=== PATIENT | female | born 1960 | race Caucasian/White ===

== ENCOUNTER 2018-11-10 14:56 | Inpatient (IN) | payer MEDICAID ==
[~2018-11-10 14:56] MED LIST: FUROSEMIDE 100 MG INJ IV
[2018-11-10 16:10] LABS: ADD MAN DIFF? NO
[2018-11-10] MEDS: ASPIRIN 81 MG TAB PO (16:10)
[2018-11-10] MEDS: NITROGLYCERIN 2% 1 GM OINT PKT TD (16:10)
[2018-11-10 16:12] LABS: WHITE BLOOD COUNT 6.5 10^3/ul (4.8-10.8)
[2018-11-10 16:12] LABS: BASOPHILS % 0.6 % (0.0-2.0); EOSINOPHILS # 0.2 10^3/ul (0.0-0.5); EOSINOPHILS % 2.5 % (0.0-7.0); HEMATOCRIT 36.5 % (37.0-47.0); LYMPHOCYTES # 1.4 10^3/ul (0.8-2.9); LYMPHOCYTES % 20.9 % (15.0-51.0); MEAN CORPUSCULAR HEMOGLOBIN 29.3 pg (29.0-33.0); MEAN CORPUSCULAR HGB CONC 32.9 g/dl (32.0-37.0); MEAN CORPUSCULAR VOLUME 89.2 fl (82.0-101.0); MEAN PLATELET VOLUME 12.1 fl (7.4-10.4); MONOCYTE # 0.5 10^3/ul (0.3-0.9); MONOCYTES % 7.4 % (0.0-11.0); NEUTROPHIL # 4.4 10^3/ul (1.6-7.5); NEUTROPHILS % 68.3 % (39.0-77.0); PLATELET COUNT 209 10^3/UL (140-415); RED BLOOD COUNT 4.09 10^6/ul (4.20-5.40); RED CELL DISTRIBUTION WIDTH 13.6 % (11.5-14.5)
[2018-11-10 16:30] LABS: INR 1.04; PROTIME 13.7 Sec (11.9-14.9); PT RATIO 1.1
[2018-11-10 16:31] LABS: PARTIAL THROMBOPLASTIN TIME 29.1 Sec (23.0-35.0)
[2018-11-10 16:34] LABS: ALANINE AMINOTRANSFERASE 75 IU/L (13-69); ALBUMIN 3.8 g/dl (3.3-4.9); ALBUMIN/GLOBULIN RATIO 1.22; ALKALINE PHOSPHATASE 223 IU/L (42-121); ANION GAP 9 (5-13); ASPARTATE AMINO TRANSFERASE 35 IU/L (15-46); BILIRUBIN,INDIRECT 0.9 mg/dl (0-1.1); BILIRUBIN,TOTAL 0.9 mg/dl (0.2-1.3); BLOOD UREA NITROGEN 12 mg/dl (7-20); CALCIUM 8.5 mg/dl (8.4-10.2); CARBON DIOXIDE 30 mmol/L (21-31); CHLORIDE 102 mmol/L (97-110); CREATININE 0.55 mg/dl (0.44-1.00); Estimated GFR > 60 mL/min (>60); GLUCOSE 352 mg/dl (70-220); POTASSIUM 3.6 mmol/L (3.5-5.1); SODIUM 141 mmol/L (135-144); TOTAL PROTEIN 6.9 g/dl (6.1-8.1)
[2018-11-10 16:43] LABS: B-TYPE NATRIURETIC PEPTIDE 9470 PG/ML (0-125); TROPONIN-I < 0.012 ng/ml (0.000-0.120)
[2018-11-10] MEDS: FUROSEMIDE 40 MG INJ IV (19:00)
[2018-11-10] MEDS ORDERED: DEXTROSE 50% 50 ML SYRINGE IV ×2 (19:30)
[2018-11-10] MEDS ORDERED: GLUCOSE GEL 15 GRAM TUBE PO ×2 (19:30)
[2018-11-10] MEDS ORDERED: GLUCAGON 1 MG INJ IM (19:30)
[2018-11-10] MEDS ORDERED: ONDANSETRON 4 MG INJ IV (19:30)
[2018-11-10] MEDS ORDERED: NACL 0.9% 3 ML SYG IV (19:30)
[2018-11-10] MEDS ORDERED: GLUCOSE GEL 15 GRAM TUBE BUCCAL (19:30)
[2018-11-10] MEDS: ACETAMINOPHEN 325 MG TAB PO (22:03)
[2018-11-10] MEDS: INSULIN ASPART [NOVOLOG] 3 ML PEN SC (23:37)
[2018-11-11] MEDS: ACCU-CHEK XX (02:00)
[2018-11-11 05:42] LABS: ADD MAN DIFF? NO
[2018-11-11 05:50] LABS: BASOPHIL # 0.1 10^3/ul (0.0-0.1); BASOPHILS % 0.8 % (0.0-2.0); EOSINOPHILS # 0.2 10^3/ul (0.0-0.5); EOSINOPHILS % 3.9 % (0.0-7.0); HEMATOCRIT 33.6 % (37.0-47.0); HEMOGLOBIN 11.2 g/dl (12.0-16.0); LYMPHOCYTES # 1.5 10^3/ul (0.8-2.9); MEAN CORPUSCULAR HGB CONC 33.3 g/dl (32.0-37.0); MEAN CORPUSCULAR VOLUME 90.1 fl (82.0-101.0); MEAN PLATELET VOLUME 12.3 fl (7.4-10.4); MONOCYTE # 0.6 10^3/ul (0.3-0.9); MONOCYTES % 9.4 % (0.0-11.0); NEUTROPHIL # 3.7 10^3/ul (1.6-7.5); NEUTROPHILS % 60.6 % (39.0-77.0); PLATELET COUNT 177 10^3/UL (140-415); RED BLOOD COUNT 3.73 10^6/ul (4.20-5.40); RED CELL DISTRIBUTION WIDTH 13.7 % (11.5-14.5)
[2018-11-11 05:50] LABS: WHITE BLOOD COUNT 6.1 10^3/ul (4.8-10.8)
[2018-11-11 06:11] LABS: ALANINE AMINOTRANSFERASE 65 IU/L (13-69); ALBUMIN 3.2 g/dl (3.3-4.9); ALBUMIN/GLOBULIN RATIO 1.06; ALKALINE PHOSPHATASE 163 IU/L (42-121); ANION GAP 8 (5-13); ASPARTATE AMINO TRANSFERASE 31 IU/L (15-46); BILIRUBIN,INDIRECT 0.8 mg/dl (0-1.1); BILIRUBIN,TOTAL 0.8 mg/dl (0.2-1.3); BLOOD UREA NITROGEN 13 mg/dl (7-20); CALCIUM 8.3 mg/dl (8.4-10.2); CARBON DIOXIDE 32 mmol/L (21-31); CHLORIDE 104 mmol/L (97-110); CHOL/HDL RATIO 3.2 RATIO; CHOLESTEROL 87 mg/dl (100-200); CREATININE 0.61 mg/dl (0.44-1.00); Estimated GFR > 60 mL/min (>60); GLUCOSE 140 mg/dl (70-220); HDL CHOLESTEROL 27 mg/dl (37-92); LDL CHOLESTEROL,CALCULATED 41 mg/dl; MAGNESIUM 1.8 mg/dl (1.7-2.5); PHOSPHORUS 4.9 mg/dl (2.5-4.9); POTASSIUM 3.9 mmol/L (3.5-5.1); SODIUM 144 mmol/L (135-144); TOTAL PROTEIN 6.2 g/dl (6.1-8.1); TRIGLYCERIDES 96 mg/dl (0-149)
[2018-11-11 07:29] LABS: HEMOGLOBIN A1C 10.1 % (0-5.9)
[2018-11-11] MEDS: INSULIN ASPART [NOVOLOG] 3 ML PEN SC ×4 (07:56→20:21)
[2018-11-11] MEDS: ASPIRIN (EC) 81 MG TAB PO (09:12)
[2018-11-11] MEDS: LISINOPRIL 10 MG TAB PO ×2 (09:13→11:27)
[2018-11-11] MEDS: ENOXAPARIN 40 MG/0.4 ML SYG SC (09:17)
[2018-11-11 11:37] LABS: TROPONIN-I < 0.012 ng/ml (0.000-0.120)
[2018-11-11 12:01] LABS: LACTATE DEHYDROGENASE 545 IU/L (313-618)
[2018-11-11] MEDS: LIDOCAINE 1% (MPF) 5 ML VIAL (12:33)
[2018-11-11 14:38] LABS: FLUID LD 161 U/L; FLUID TYPE THORACENTESIS FLUID
[2018-11-11 14:39] LABS: FLUID TOTAL PROTEIN < 2.0 g/dl
[2018-11-11] MEDS: FUROSEMIDE 40 MG INJ IV (17:24)
[2018-11-11] MEDS: ATORVASTATIN 40 MG TAB PO (21:17)
[2018-11-12] MEDS: ACCU-CHEK XX (01:39)
[2018-11-12] MEDS: FUROSEMIDE 40 MG INJ IV (06:32)
[2018-11-12] MEDS: INSULIN ASPART [NOVOLOG] 3 ML PEN SC ×5 (08:01→21:04)
[2018-11-12 08:40] LABS: ADD MAN DIFF? NO
[2018-11-12 08:42] LABS: WHITE BLOOD COUNT 6.2 10^3/ul (4.8-10.8)
[2018-11-12 08:42] LABS: BASOPHIL # 0.1 10^3/ul (0.0-0.1); BASOPHILS % 0.8 % (0.0-2.0); EOSINOPHILS # 0.2 10^3/ul (0.0-0.5); EOSINOPHILS % 3.7 % (0.0-7.0); HEMATOCRIT 37.1 % (37.0-47.0); HEMOGLOBIN 12.2 g/dl (12.0-16.0); LYMPHOCYTES # 1.4 10^3/ul (0.8-2.9); LYMPHOCYTES % 21.8 % (15.0-51.0); MEAN CORPUSCULAR HEMOGLOBIN 29.5 pg (29.0-33.0); MEAN CORPUSCULAR HGB CONC 32.9 g/dl (32.0-37.0); MEAN CORPUSCULAR VOLUME 89.8 fl (82.0-101.0); MEAN PLATELET VOLUME 12.1 fl (7.4-10.4); MONOCYTE # 0.4 10^3/ul (0.3-0.9); MONOCYTES % 6.9 % (0.0-11.0); NEUTROPHIL # 4.1 10^3/ul (1.6-7.5); NEUTROPHILS % 66.6 % (39.0-77.0); PLATELET COUNT 209 10^3/UL (140-415); RED BLOOD COUNT 4.13 10^6/ul (4.20-5.40); RED CELL DISTRIBUTION WIDTH 13.7 % (11.5-14.5)
[2018-11-12] MEDS: LISINOPRIL 20 MG TAB PO (08:59)
[2018-11-12] MEDS: ASPIRIN (EC) 81 MG TAB PO (09:00)
[2018-11-12] MEDS ORDERED: LISINOPRIL 20 MG TAB PO (09:00)
[2018-11-12 09:10] LABS: ANION GAP 7 (5-13); BLOOD UREA NITROGEN 15 mg/dl (7-20); CALCIUM 8.6 mg/dl (8.4-10.2); CARBON DIOXIDE 35 mmol/L (21-31); CHLORIDE 99 mmol/L (97-110); CREATININE 0.64 mg/dl (0.44-1.00); Estimated GFR > 60 mL/min (>60); GLUCOSE 197 mg/dl (70-220); POTASSIUM 3.5 mmol/L (3.5-5.1); SODIUM 141 mmol/L (135-144)
[2018-11-12 09:11] LABS: MAGNESIUM 1.6 mg/dl (1.7-2.5)
[2018-11-12] MEDS: ENOXAPARIN 40 MG/0.4 ML SYG SC (09:56)
[2018-11-12] MEDS: NITROGLYCERIN AEROSOL (4.9 GM) (12:23)
[2018-11-12] MEDS: SOD CHLORIDE 0.9% 100 ML (12:36)
[2018-11-12] MEDS: IOHEXOL 100 ML (12:36)
[2018-11-12] MEDS: MAGNESIUM SULFATE 2 GM/50 ML 50 ML IVPB (13:19)
[2018-11-12] MEDS: POTASSIUM CHLORIDE 20 MEQ POWDER FOR ORAL SOLN PO (15:44)
[2018-11-12] MEDS: FUROSEMIDE 20 MG INJ IV (19:09)
[2018-11-12] MEDS: INSULIN GLARGINE [LANTus] (100 UNITS/ML) SYG SC (19:26)
[2018-11-12] MEDS: ATORVASTATIN 40 MG TAB PO (20:56)
[2018-11-13] MEDS: ACCU-CHEK XX (01:29)
[2018-11-13] MEDS: FUROSEMIDE 20 MG INJ IV (06:21)
[2018-11-13] MEDS: INSULIN ASPART [NOVOLOG] 3 ML PEN SC ×7 (07:48→21:00)
[2018-11-13] MEDS: ENOXAPARIN 40 MG/0.4 ML SYG SC (09:00)
[2018-11-13] MEDS: LISINOPRIL 20 MG TAB PO (09:32)
[2018-11-13] MEDS: ASPIRIN (EC) 81 MG TAB PO (09:32)
[2018-11-13] MEDS ORDERED: HEPARIN 1000 UNITS/ML 10 ML INJ (13:31)
[2018-11-13] MEDS ORDERED: IODIXANOL LOCM 100 ML BTL (13:31)
[2018-11-13] MEDS ORDERED: VERAPAMIL 5 MG INJ (13:31)
[2018-11-13] MEDS ORDERED: FENTAnyl 50 MCG/ML VIAL (13:31)
[2018-11-13] MEDS ORDERED: MIDAZOLAM 1 MG/ML 2 ML INJ (13:31)
[2018-11-13] MEDS ORDERED: LIDOCAINE 1% (MDV) 20 ML INJ (13:31)
[2018-11-13] MEDS ORDERED: SOD CHLORIDE 0.9% 500 ML (13:32)
[2018-11-13] MEDS: FUROSEMIDE 40 MG INJ IV ×2 (17:54→18:38)
[2018-11-13] MEDS: ATORVASTATIN 40 MG TAB PO (21:07)
[2018-11-13] MEDS: INSULIN GLARGINE [LANTus] (100 UNITS/ML) SYG SC (21:18)
[2018-11-14] MEDS: ACCU-CHEK XX (01:37)
[2018-11-14] MEDS: FUROSEMIDE 40 MG INJ IV (05:55)
[2018-11-14 06:21] LABS: ADD MAN DIFF? NO
[2018-11-14 06:30] LABS: BASOPHILS % 0.5 % (0.0-2.0); EOSINOPHILS # 0.2 10^3/ul (0.0-0.5); EOSINOPHILS % 3.1 % (0.0-7.0); HEMATOCRIT 35.9 % (37.0-47.0); HEMOGLOBIN 11.6 g/dl (12.0-16.0); LYMPHOCYTES # 1.1 10^3/ul (0.8-2.9); LYMPHOCYTES % 19.7 % (15.0-51.0); MEAN CORPUSCULAR HEMOGLOBIN 29.4 pg (29.0-33.0); MEAN CORPUSCULAR HGB CONC 32.3 g/dl (32.0-37.0); MEAN CORPUSCULAR VOLUME 91.1 fl (82.0-101.0); MEAN PLATELET VOLUME 12.2 fl (7.4-10.4); MONOCYTE # 0.5 10^3/ul (0.3-0.9); MONOCYTES % 8.7 % (0.0-11.0); NEUTROPHIL # 3.9 10^3/ul (1.6-7.5); NEUTROPHILS % 67.7 % (39.0-77.0); PLATELET COUNT 198 10^3/UL (140-415); RED BLOOD COUNT 3.94 10^6/ul (4.20-5.40); RED CELL DISTRIBUTION WIDTH 13.6 % (11.5-14.5)
[2018-11-14 06:30] LABS: WHITE BLOOD COUNT 5.8 10^3/ul (4.8-10.8)
[2018-11-14 07:02] LABS: ANION GAP 4 (5-13); BLOOD UREA NITROGEN 19 mg/dl (7-20); CALCIUM 8.2 mg/dl (8.4-10.2); CARBON DIOXIDE 35 mmol/L (21-31); CHLORIDE 100 mmol/L (97-110); CREATININE 0.61 mg/dl (0.44-1.00); Estimated GFR > 60 mL/min (>60); GLUCOSE 208 mg/dl (70-220); POTASSIUM 3.6 mmol/L (3.5-5.1); SODIUM 139 mmol/L (135-144)
[2018-11-14] MEDS: POTASSIUM CHLORIDE 20 MEQ POWDER FOR ORAL SOLN PO (09:23)
[2018-11-14] MEDS: AMLODIPINE 5 MG TAB PO (09:23)
[2018-11-14] MEDS: ASPIRIN (EC) 81 MG TAB PO (09:23)
[2018-11-14] MEDS: LISINOPRIL 20 MG TAB PO (09:24)
[2018-11-14] MEDS: ENOXAPARIN 40 MG/0.4 ML SYG SC (09:38)
[2018-11-14] MEDS: INSULIN ASPART [NOVOLOG] 3 ML PEN SC ×7 (09:38→20:38)
[2018-11-14] MEDS: ATORVASTATIN 40 MG TAB PO (20:27)
[2018-11-14] MEDS: INSULIN GLARGINE [LANTus] (100 UNITS/ML) SYG SC (20:38)
[2018-11-15] MEDS: ACCU-CHEK XX (01:36)
[2018-11-15 06:15] LABS: ADD MAN DIFF? NO
[2018-11-15 06:24] LABS: BASOPHILS % 0.5 % (0.0-2.0); EOSINOPHILS # 0.2 10^3/ul (0.0-0.5); EOSINOPHILS % 3.2 % (0.0-7.0); HEMATOCRIT 36.7 % (37.0-47.0); HEMOGLOBIN 11.9 g/dl (12.0-16.0); LYMPHOCYTES # 1.4 10^3/ul (0.8-2.9); LYMPHOCYTES % 20.8 % (15.0-51.0); MEAN CORPUSCULAR HEMOGLOBIN 29.5 pg (29.0-33.0); MEAN CORPUSCULAR HGB CONC 32.4 g/dl (32.0-37.0); MEAN CORPUSCULAR VOLUME 91.1 fl (82.0-101.0); MEAN PLATELET VOLUME 11.7 fl (7.4-10.4); MONOCYTE # 0.6 10^3/ul (0.3-0.9); MONOCYTES % 9.7 % (0.0-11.0); NEUTROPHIL # 4.3 10^3/ul (1.6-7.5); NEUTROPHILS % 65.5 % (39.0-77.0); PLATELET COUNT 204 10^3/UL (140-415); RED BLOOD COUNT 4.03 10^6/ul (4.20-5.40); RED CELL DISTRIBUTION WIDTH 13.5 % (11.5-14.5)
[2018-11-15 06:24] LABS: WHITE BLOOD COUNT 6.5 10^3/ul (4.8-10.8)
[2018-11-15 07:03] LABS: ANION GAP 4 (5-13); BLOOD UREA NITROGEN 17 mg/dl (7-20); CALCIUM 8.3 mg/dl (8.4-10.2); CARBON DIOXIDE 34 mmol/L (21-31); CHLORIDE 101 mmol/L (97-110); CREATININE 0.64 mg/dl (0.44-1.00); Estimated GFR > 60 mL/min (>60); GLUCOSE 124 mg/dl (70-220); POTASSIUM 3.9 mmol/L (3.5-5.1); SODIUM 139 mmol/L (135-144)
[2018-11-15] MEDS: INSULIN ASPART [NOVOLOG] 3 ML PEN SC ×7 (07:48→21:00)
[2018-11-15] MEDS: AMLODIPINE 5 MG TAB PO (08:39)
[2018-11-15] MEDS: FUROSEMIDE 40 MG TAB PO (08:39)
[2018-11-15] MEDS: ASPIRIN (EC) 81 MG TAB PO (08:39)
[2018-11-15] MEDS: ENOXAPARIN 40 MG/0.4 ML SYG SC (08:45)
[2018-11-15] MEDS: LISINOPRIL 20 MG TAB PO (11:57)
[2018-11-15] MEDS: ATORVASTATIN 40 MG TAB PO (21:19)
[2018-11-15] MEDS: INSULIN GLARGINE [LANTus] (100 UNITS/ML) SYG SC (21:24)
[2018-11-16] MEDS: ACCU-CHEK XX (02:00)
[2018-11-16 05:40] LABS: ADD MAN DIFF? NO
[2018-11-16 06:01] LABS: BASOPHILS % 0.6 % (0.0-2.0); EOSINOPHILS # 0.2 10^3/ul (0.0-0.5); EOSINOPHILS % 4.5 % (0.0-7.0); HEMATOCRIT 36.8 % (37.0-47.0); HEMOGLOBIN 11.9 g/dl (12.0-16.0); LYMPHOCYTES # 1.7 10^3/ul (0.8-2.9); LYMPHOCYTES % 33.3 % (15.0-51.0); MEAN CORPUSCULAR HEMOGLOBIN 29.5 pg (29.0-33.0); MEAN CORPUSCULAR HGB CONC 32.3 g/dl (32.0-37.0); MEAN CORPUSCULAR VOLUME 91.3 fl (82.0-101.0); MEAN PLATELET VOLUME 11.8 fl (7.4-10.4); MONOCYTE # 0.5 10^3/ul (0.3-0.9); MONOCYTES % 10.4 % (0.0-11.0); NEUTROPHIL # 2.6 10^3/ul (1.6-7.5); PLATELET COUNT 221 10^3/UL (140-415); RED BLOOD COUNT 4.03 10^6/ul (4.20-5.40); RED CELL DISTRIBUTION WIDTH 13.4 % (11.5-14.5)
[2018-11-16 06:01] LABS: WHITE BLOOD COUNT 5.1 10^3/ul (4.8-10.8)
[2018-11-16 06:14] LABS: ANION GAP 5 (5-13); BLOOD UREA NITROGEN 17 mg/dl (7-20); CALCIUM 8.6 mg/dl (8.4-10.2); CARBON DIOXIDE 33 mmol/L (21-31); CHLORIDE 103 mmol/L (97-110); CREATININE 0.74 mg/dl (0.44-1.00); Estimated GFR > 60 mL/min (>60); GLUCOSE 123 mg/dl (70-220); MAGNESIUM 2.1 mg/dl (1.7-2.5); POTASSIUM 4.4 mmol/L (3.5-5.1); SODIUM 141 mmol/L (135-144)
[2018-11-16] MEDS: CEFAZOLIN 2 GM/50 ML (PMX) 50 ML IVPB (07:00)
[2018-11-16] MEDS: INSULIN ASPART [NOVOLOG] 3 ML PEN SC ×7 (07:48→20:00)
[2018-11-16] MEDS: FUROSEMIDE 40 MG INJ IV (07:53)
[2018-11-16] MEDS: LISINOPRIL 20 MG TAB PO (08:41)
[2018-11-16] MEDS: AMLODIPINE 5 MG TAB PO (08:41)
[2018-11-16] MEDS: ASPIRIN (EC) 81 MG TAB PO (08:41)
[2018-11-16] MEDS: ENOXAPARIN 40 MG/0.4 ML SYG SC (08:48)
[2018-11-16] MEDS: ATORVASTATIN 40 MG TAB PO (20:01)
[2018-11-16] MEDS: INSULIN GLARGINE [LANTus] (100 UNITS/ML) SYG SC (20:02)
[2018-11-17] MEDS: ACCU-CHEK XX ×13 (02:00→23:41)
[2018-11-17 06:30] LABS: ADD MAN DIFF? NO
[2018-11-17 06:38] LABS: WHITE BLOOD COUNT 5.1 10^3/ul (4.8-10.8)
[2018-11-17 06:38] LABS: BASOPHILS % 0.4 % (0.0-2.0); EOSINOPHILS # 0.2 10^3/ul (0.0-0.5); EOSINOPHILS % 3.1 % (0.0-7.0); HEMATOCRIT 38.2 % (37.0-47.0); HEMOGLOBIN 12.3 g/dl (12.0-16.0); LYMPHOCYTES # 1.3 10^3/ul (0.8-2.9); MEAN CORPUSCULAR HEMOGLOBIN 29.4 pg (29.0-33.0); MEAN CORPUSCULAR HGB CONC 32.2 g/dl (32.0-37.0); MEAN CORPUSCULAR VOLUME 91.2 fl (82.0-101.0); MEAN PLATELET VOLUME 11.9 fl (7.4-10.4); MONOCYTE # 0.5 10^3/ul (0.3-0.9); MONOCYTES % 9.1 % (0.0-11.0); NEUTROPHIL # 3.1 10^3/ul (1.6-7.5); PLATELET COUNT 212 10^3/UL (140-415); RED BLOOD COUNT 4.19 10^6/ul (4.20-5.40); RED CELL DISTRIBUTION WIDTH 13.5 % (11.5-14.5)
[2018-11-17] MEDS ORDERED: HEPARIN 1000 UNITS/ML 10 ML INJ ×3 (06:41→09:58)
[2018-11-17] MEDS ORDERED: VANCOMYCIN 1 GM INJ ×2 (06:41→06:45)
[2018-11-17] MEDS ORDERED: PAPAVERINE 60 MG INJ (06:41)
[2018-11-17] MEDS ORDERED: NITROGLYCERIN 50 MG/D5W 250 ML BTL (06:42)
[2018-11-17] MEDS ORDERED: DOPamine-D5W 1.6 MG/ML 250 ML (06:42)
[2018-11-17] MEDS ORDERED: CEFAZOLIN 2 GM/50 ML (PMX) 50 ML IVPB (07:00)
[2018-11-17 07:25] LABS: ANION GAP 6 (5-13); BLOOD UREA NITROGEN 19 mg/dl (7-20); CALCIUM 8.6 mg/dl (8.4-10.2); CARBON DIOXIDE 31 mmol/L (21-31); CHLORIDE 101 mmol/L (97-110); CREATININE 0.65 mg/dl (0.44-1.00); Estimated GFR > 60 mL/min (>60); GLUCOSE 167 mg/dl (70-220); MAGNESIUM 2.1 mg/dl (1.7-2.5); POTASSIUM 4.2 mmol/L (3.5-5.1); SODIUM 138 mmol/L (135-144)
[2018-11-17] MEDS: HEPARIN (10000 UNITS/ML) 10,000 UNIT, MILRINONE LACTATE 10 MG in SOD CHLORIDE 0.9% 1,00... SC (08:00)
[2018-11-17] MEDS: HEPARIN 1000 UNITS/ML 10 ML INJ IRR (08:00)
[2018-11-17] MEDS: ASPIRIN 600 MG SUPP PR (08:00)
[2018-11-17] MEDS: VANCOMYCIN 1 GM INJ IRR (08:00)
[2018-11-17] MEDS: PAPAVERINE 60 MG INJ IRR (08:00)
[2018-11-17] MEDS ORDERED: MIDAZOLAM 1 MG/ML 2 ML INJ (08:16)
[2018-11-17] MEDS ORDERED: POTASSIUM CHLORIDE 40 MEQ INJ (08:46)
[2018-11-17] MEDS ORDERED: MAGNESIUM SULFATE (MG) 50% 10 ML INJ (08:46)
[2018-11-17] MEDS ORDERED: NA BICARBONATE 8.4% 50 ML SYG (08:46)
[2018-11-17] MEDS ORDERED: AMINOCAPROIC ACID 5 GM INJ ×4 (08:46→11:57)
[2018-11-17] MEDS ORDERED: PHENYLephrine 10 MG INJ (08:47)
[2018-11-17] MEDS ORDERED: CA CHLORIDE 10% 10 ML SYRINGE (08:47)
[2018-11-17] MEDS ORDERED: LIDOCAINE 100 MG SYRINGE (08:47)
[2018-11-17] MEDS ORDERED: MANNITOL 20% 500 ML (08:47)
[2018-11-17] MEDS ORDERED: ALBUMIN HUMAN 25% 100 ML (08:47)
[2018-11-17] MEDS ORDERED: CEFAZOLIN 1 GM INJ (08:53)
[2018-11-17] MEDS ORDERED: MIDAZOLAM 5 ML (10:20)
[2018-11-17] MEDS ORDERED: ROCURONIUM 50 MG INJ (11:27)
[2018-11-17] MEDS ORDERED: ETOMIDATE 20 MG INJ (11:27)
[2018-11-17] MEDS ORDERED: LIDOCAINE 2% (SDV) 5 ML INJ (11:27)
[2018-11-17] MEDS ORDERED: PROTAMINE 250 MG INJ (11:27)
[2018-11-17] MEDS ORDERED: FUROSEMIDE 20 MG INJ (11:46)
[2018-11-17] MEDS ORDERED: MAGNESIUM SULFATE 1 GM/D5W 100 ML IVPB (12:30)
[2018-11-17] MEDS ORDERED: DEXTROSE 50% 50 ML SYRINGE IV ×2 (12:30)
[2018-11-17] MEDS ORDERED: HYDROmorphONE 0.5 MG/0.5 ML SYG IV (12:30)
[2018-11-17] MEDS: DOPamine-D5W 1.6 MG/ML 250 ML IV (13:00)
[2018-11-17] MEDS: NITROGLYCERIN 50 MG/D5W (PMX) 250 ML IV (13:00)
[2018-11-17] MEDS ORDERED: hydrALAzine 20 MG INJ IV (13:30)
[2018-11-17] MEDS ORDERED: ALBUMIN HUMAN 5% 250 ML IV (13:30)
[2018-11-17] MEDS ORDERED: LORAZEPAM 2 MG INJ IV (13:30)
[2018-11-17] MEDS ORDERED: DOPamine-D5W 1.6 MG/ML 250 ML IV (13:30)
[2018-11-17] MEDS ORDERED: NITROGLYCERIN 50 MG/D5W (PMX) 250 ML IV (13:30)
[2018-11-17] MEDS ORDERED: MIDAZOLAM 1 MG/ML 2 ML INJ IV (13:30)
[2018-11-17] MEDS ORDERED: EPHEDrine 25 MG/5 ML SYG IV (13:30)
[2018-11-17] MEDS ORDERED: ONDANSETRON 4 MG INJ IV (13:30)
[2018-11-17] MEDS ORDERED: morphine 2 MG INJ IV ×2 (13:30)
[2018-11-17] MEDS ORDERED: DIPHENHYDRAMINE 50 MG INJ IV (13:30)
[2018-11-17] MEDS ORDERED: MEPERIDINE 25 MG INJ IV (13:30)
[2018-11-17 13:41] LABS: ADD MAN DIFF? NO
[2018-11-17 13:45] LABS: BASOPHILS % 0.4 % (0.0-2.0); EOSINOPHILS # 0.2 10^3/ul (0.0-0.5); EOSINOPHILS % 2.2 % (0.0-7.0); HEMATOCRIT 38.4 % (37.0-47.0); HEMOGLOBIN 12.5 g/dl (12.0-16.0); LYMPHOCYTES # 1.7 10^3/ul (0.8-2.9); LYMPHOCYTES % 16.9 % (15.0-51.0); MEAN CORPUSCULAR HGB CONC 32.6 g/dl (32.0-37.0); MEAN CORPUSCULAR VOLUME 92.3 fl (82.0-101.0); MEAN PLATELET VOLUME 11.1 fl (7.4-10.4); MONOCYTE # 0.5 10^3/ul (0.3-0.9); MONOCYTES % 5.1 % (0.0-11.0); NEUTROPHIL # 7.4 10^3/ul (1.6-7.5); NEUTROPHILS % 74.8 % (39.0-77.0); PLATELET COUNT 164 10^3/UL (140-415); RED BLOOD COUNT 4.16 10^6/ul (4.20-5.40); RED CELL DISTRIBUTION WIDTH 13.3 % (11.5-14.5)
[2018-11-17 13:45] LABS: WHITE BLOOD COUNT 9.9 10^3/ul (4.8-10.8)
[2018-11-17 14:04] LABS: INR 1.28; PROTIME 16.1 Sec (11.9-14.9); PT RATIO 1.3
[2018-11-17 14:05] LABS: PARTIAL THROMBOPLASTIN TIME 31.7 Sec (23.0-35.0)
[2018-11-17 14:09] LABS: ANION GAP 8 (5-13); BLOOD UREA NITROGEN 14 mg/dl (7-20); CARBON DIOXIDE 23 mmol/L (21-31); CHLORIDE 111 mmol/L (97-110); CREATININE 0.59 mg/dl (0.44-1.00); Estimated GFR > 60 mL/min (>60); GLUCOSE 127 mg/dl (70-220); MAGNESIUM 2.4 mg/dl (1.7-2.5); POTASSIUM 3.5 mmol/L (3.5-5.1); SODIUM 142 mmol/L (135-144)
[2018-11-17 14:11] LABS: AADO2 Arterial 370.8 mmHg (7.0-24.0); Arterial Base Excess -3.7 mmol/L (-3.0-3); Arterial Blood Gas Oxygen Sat 95.6 mmHG (95.0-98.0); Arterial COHb 0.3 % (0.0-3.0); Arterial Fraction of Oxyhgb 94.9 % (93.0-99.0); Arterial HCO3 21.7 mmol/L (22.0-26.0); Arterial MetHb 0.4 % (0.0-1.5); Arterial pCO2 40.5 mmhg (35-45); MODE VENT - AC; Site A-Line
[2018-11-17 14:25] LABS: MODE VENT - AC; MetHgb Mixed Venous 0.4 %; Mixed Venous COHb 0 %; Mixed Venous Fraction OxyHgb 64.8 %; Mixed Venous Oxygen Sat 65.1 mmHG (65.0-75.0); Mixed Venous Total Hemglobin 13.5 g/dl; Sample Type BLMV; Site OTHER
[2018-11-17] MEDS: POTASSIUM CHLORIDE 50 ML IVPB ×3 (14:44→17:25)
[2018-11-17] MEDS: POTASSIUM CHLORIDE 40 MEQ, CALCIUM CHLORIDE 10% 1 GM in DEXTROSE 5%-0.225% NACL 1,000 ML IV (14:57)
[2018-11-17] MEDS: EPINEPHrine 4 MG in DEXTROSE 5% 246 ML IV (15:52)
[2018-11-17] MEDS: NORepinephrine 8MG/250 ML (PMX 250 ML IV (15:52)
[2018-11-17] MEDS: MILRINONE LACTATE 2 MG in SOD CHLORIDE 0.9% 50 ML IV (15:53)
[2018-11-17] MEDS: PHENYLephrine 20MG IN 250 ML 250 ML IV (15:53)
[2018-11-17] MEDS: INSULIN HUMAN REGULAR 100 UNIT in SOD CHLORIDE 0.9% 99 ML IVPB (15:53)
[2018-11-17] MEDS: CEFAZOLIN 1 GM/50 ML (PMX) 50 ML IVPB ×2 (16:30→23:14)
[2018-11-17] MEDS: HYDROmorphONE 0.5 MG/0.5 ML SYG IV (17:45)
[2018-11-17] MEDS: ALBUMIN HUMAN 5% 250 ML IV ×2 (17:53→20:27)
[2018-11-17 18:22] LABS: ADD MAN DIFF? NO
[2018-11-17 18:25] LABS: BASOPHILS % 0.3 % (0.0-2.0); EOSINOPHILS # 0.1 10^3/ul (0.0-0.5); EOSINOPHILS % 0.8 % (0.0-7.0); HEMATOCRIT 36.7 % (37.0-47.0); HEMOGLOBIN 11.9 g/dl (12.0-16.0); LYMPHOCYTES # 0.9 10^3/ul (0.8-2.9); LYMPHOCYTES % 7.1 % (15.0-51.0); MEAN CORPUSCULAR HEMOGLOBIN 29.5 pg (29.0-33.0); MEAN CORPUSCULAR HGB CONC 32.4 g/dl (32.0-37.0); MEAN CORPUSCULAR VOLUME 91.1 fl (82.0-101.0); MONOCYTE # 1.2 10^3/ul (0.3-0.9); MONOCYTES % 8.9 % (0.0-11.0); NEUTROPHIL # 10.7 10^3/ul (1.6-7.5); NEUTROPHILS % 82.4 % (39.0-77.0); PLATELET COUNT 160 10^3/UL (140-415); RED BLOOD COUNT 4.03 10^6/ul (4.20-5.40); RED CELL DISTRIBUTION WIDTH 13.6 % (11.5-14.5)
[2018-11-17 18:44] LABS: ALANINE AMINOTRANSFERASE 45 IU/L (13-69); ALBUMIN/GLOBULIN RATIO 1.15; ALKALINE PHOSPHATASE 104 IU/L (42-121); ANION GAP 8 (5-13); ASPARTATE AMINO TRANSFERASE 43 IU/L (15-46); BILIRUBIN,INDIRECT 0.8 mg/dl (0-1.1); BILIRUBIN,TOTAL 0.8 mg/dl (0.2-1.3); BLOOD UREA NITROGEN 14 mg/dl (7-20); CALCIUM 8.1 mg/dl (8.4-10.2); CARBON DIOXIDE 22 mmol/L (21-31); CHLORIDE 111 mmol/L (97-110); CREATININE 0.62 mg/dl (0.44-1.00); Estimated GFR > 60 mL/min (>60); GLUCOSE 227 mg/dl (70-220); MAGNESIUM 2.3 mg/dl (1.7-2.5); PHOSPHORUS 4.1 mg/dl (2.5-4.9); POTASSIUM 4.7 mmol/L (3.5-5.1); SODIUM 141 mmol/L (135-144); TOTAL PROTEIN 5.6 g/dl (6.1-8.1)
[2018-11-17 18:47] LABS: INR 1.14; PROTIME 14.7 Sec (11.9-14.9); PT RATIO 1.1
[2018-11-17 18:48] LABS: PARTIAL THROMBOPLASTIN TIME 32.4 Sec (23.0-35.0)
[2018-11-17] MEDS: INSULIN HUMAN REGULAR 100 UNIT in SOD CHLORIDE 0.9% 99 ML IV (19:13)
[2018-11-17 20:00] LABS: AADO2 Arterial 113.2 mmHg (7.0-24.0); Arterial Base Excess -5.5 mmol/L (-3.0-3); Arterial Blood Gas Oxygen Sat 98.1 mmHG (95.0-98.0); Arterial COHb 0 % (0.0-3.0); Arterial Fraction of Oxyhgb 97.6 % (93.0-99.0); Arterial HCO3 19.6 mmol/L (22.0-26.0); Arterial MetHb 0.5 % (0.0-1.5); Blood Gas PS 10; MODE VENT - CPAP; Site A-Line
[2018-11-17] MEDS: FAMOTIDINE 20 MG INJ IV (20:32)
[2018-11-17 21:25] LABS: HEMATOCRIT 34.2 % (37.0-47.0); HEMOGLOBIN 10.9 g/dl (12.0-16.0)
[2018-11-17] MEDS: ACETAMINOPHEN 325 MG TAB PO (21:36)
[2018-11-17 21:42] LABS: AADO2 Arterial 78.8 mmHg (7.0-24.0); Arterial Base Excess -4.7 mmol/L (-3.0-3); Arterial COHb 0.3 % (0.0-3.0); Arterial Fraction of Oxyhgb 97.2 % (93.0-99.0); Arterial HCO3 19.9 mmol/L (22.0-26.0); Arterial MetHb 0.5 % (0.0-1.5); Arterial pCO2 35.4 mmhg (35-45); MODE NASAL CANNULA; Site A-Line
[2018-11-18] MEDS: ACCU-CHEK XX ×16 (00:30→15:30)
[2018-11-18] MEDS: ALBUMIN HUMAN 5% 250 ML IV ×2 (00:35→04:04)
[2018-11-18] MEDS: DOPamine-D5W 1.6 MG/ML 250 ML IV (01:43)
[2018-11-18] MEDS: ONDANSETRON 4 MG INJ IV (01:50)
[2018-11-18 04:38] LABS: ADD MAN DIFF? NO
[2018-11-18 04:39] LABS: BASOPHILS % 0.2 % (0.0-2.0); HEMATOCRIT 27.6 % (37.0-47.0); LYMPHOCYTES # 0.7 10^3/ul (0.8-2.9); LYMPHOCYTES % 7.2 % (15.0-51.0); MEAN CORPUSCULAR HEMOGLOBIN 30.5 pg (29.0-33.0); MEAN CORPUSCULAR HGB CONC 32.6 g/dl (32.0-37.0); MEAN CORPUSCULAR VOLUME 93.6 fl (82.0-101.0); MONOCYTE # 0.5 10^3/ul (0.3-0.9); MONOCYTES % 5.4 % (0.0-11.0); NEUTROPHIL # 8.6 10^3/ul (1.6-7.5); NEUTROPHILS % 86.5 % (39.0-77.0); PLATELET COUNT 144 10^3/UL (140-415); RED BLOOD COUNT 2.95 10^6/ul (4.20-5.40); RED CELL DISTRIBUTION WIDTH 13.4 % (11.5-14.5)
[2018-11-18 04:39] LABS: WHITE BLOOD COUNT 9.9 10^3/ul (4.8-10.8)
[2018-11-18 05:03] LABS: ANION GAP 6 (5-13); BLOOD UREA NITROGEN 15 mg/dl (7-20); CALCIUM 8.6 mg/dl (8.4-10.2); CARBON DIOXIDE 24 mmol/L (21-31); CHLORIDE 113 mmol/L (97-110); CREATININE 0.63 mg/dl (0.44-1.00); Estimated GFR > 60 mL/min (>60); GLUCOSE 124 mg/dl (70-220); INR 1.17; MAGNESIUM 2.2 mg/dl (1.7-2.5); PT RATIO 1.2; SODIUM 143 mmol/L (135-144)
[2018-11-18 05:04] LABS: PARTIAL THROMBOPLASTIN TIME 35.6 Sec (23.0-35.0)
[2018-11-18 05:37] LABS: AADO2 Arterial 56.6 mmHg (7.0-24.0); Arterial Base Excess -5.9 mmol/L (-3.0-3); Arterial Blood Gas Oxygen Sat 97.1 mmHG (95.0-98.0); Arterial COHb 0.3 % (0.0-3.0); Arterial Fraction of Oxyhgb 96.2 % (93.0-99.0); Arterial HCO3 18.9 mmol/L (22.0-26.0); Arterial MetHb 0.6 % (0.0-1.5); Arterial pCO2 34.1 mmhg (35-45); MODE NASAL CANNULA; Site A-Line
[2018-11-18] MEDS: OXYCODONE/ACETAMINOPHEN (5/325) TAB PO ×2 (06:16→16:21)
[2018-11-18] MEDS: POTASSIUM CHLORIDE 50 ML IVPB ×2 (06:25→08:01)
[2018-11-18] MEDS: POTASSIUM CHLORIDE 40 MEQ, CALCIUM CHLORIDE 10% 1 GM in DEXTROSE 5%-0.225% NACL 1,000 ML IV ×2 (07:05→23:59)
[2018-11-18] MEDS: FAMOTIDINE 20 MG INJ IV (08:03)
[2018-11-18] MEDS: CEFAZOLIN 1 GM/50 ML (PMX) 50 ML IVPB (08:04)
[2018-11-18] MEDS: ASPIRIN 325 MG TAB PO (08:08)
[2018-11-18] MEDS: ENOXAPARIN 40 MG/0.4 ML SYG SC (08:14)
[2018-11-18] MEDS: SOD CHLORIDE 0.9% 500 ML IV (09:37)
[2018-11-18] MEDS ORDERED: GLUCOSE GEL 15 GRAM TUBE BUCCAL (12:30)
[2018-11-18] MEDS ORDERED: DEXTROSE 50% 50 ML SYRINGE IV ×2 (12:30)
[2018-11-18] MEDS ORDERED: GLUCOSE GEL 15 GRAM TUBE PO ×2 (12:30)
[2018-11-18] MEDS ORDERED: GLUCAGON 1 MG INJ IM (12:30)
[2018-11-18] MEDS: BUMETANIDE 1 MG INJ IV (13:43)
[2018-11-18] MEDS: INSULIN GLARGINE [LANTus] (100 UNITS/ML) SYG SC (14:03)
[2018-11-18] MEDS: INSULIN ASPART [NOVOLOG] 3 ML PEN SC (17:20)
[2018-11-18] MEDS ORDERED: FAMOTIDINE 20 MG TAB (20:59)
[2018-11-18] MEDS: ATORVASTATIN 40 MG TAB PO (21:01)
[2018-11-18] MEDS: FAMOTIDINE 20 MG TAB PO (21:01)
[2018-11-19] MEDS: OXYCODONE/ACETAMINOPHEN (5/325) TAB PO ×2 (01:05→22:28)
[2018-11-19] MEDS: ACCU-CHEK XX ×20 (01:33→22:50)
[2018-11-19] MEDS: ALBUMIN HUMAN 25% 100 ML IV (01:34)
[2018-11-19] MEDS: INSULIN ASPART [NOVOLOG] 3 ML PEN SC (02:22)
[2018-11-19] MEDS: SOD CHLORIDE 0.9% 250 ML IV (03:53)
[2018-11-19 05:28] LABS: ADD MAN DIFF? NO
[2018-11-19] MEDS ORDERED: DEXTROSE 50% 50 ML SYRINGE IV ×2 (05:30)
[2018-11-19 05:31] LABS: BASOPHILS % 0.2 % (0.0-2.0); EOSINOPHILS % 0.4 % (0.0-7.0); HEMATOCRIT 23.6 % (37.0-47.0); HEMOGLOBIN 7.3 g/dl (12.0-16.0); LYMPHOCYTES # 1.6 10^3/ul (0.8-2.9); LYMPHOCYTES % 17.4 % (15.0-51.0); MEAN CORPUSCULAR HEMOGLOBIN 29.7 pg (29.0-33.0); MEAN CORPUSCULAR HGB CONC 30.9 g/dl (32.0-37.0); MEAN CORPUSCULAR VOLUME 95.9 fl (82.0-101.0); MEAN PLATELET VOLUME 12.6 fl (7.4-10.4); MONOCYTE # 0.8 10^3/ul (0.3-0.9); MONOCYTES % 9.1 % (0.0-11.0); NEUTROPHIL # 6.6 10^3/ul (1.6-7.5); NEUTROPHILS % 72.5 % (39.0-77.0); PLATELET COUNT 104 10^3/UL (140-415); RED BLOOD COUNT 2.46 10^6/ul (4.20-5.40); RED CELL DISTRIBUTION WIDTH 13.7 % (11.5-14.5)
[2018-11-19 05:31] LABS: WHITE BLOOD COUNT 9.1 10^3/ul (4.8-10.8)
[2018-11-19 05:52] LABS: ANION GAP 8 (5-13); BLOOD UREA NITROGEN 20 mg/dl (7-20); CALCIUM 8.8 mg/dl (8.4-10.2); CARBON DIOXIDE 22 mmol/L (21-31); CHLORIDE 105 mmol/L (97-110); CREATININE 0.93 mg/dl (0.44-1.00); Estimated GFR > 60 mL/min (>60); GLUCOSE 234 mg/dl (70-220); MAGNESIUM 2.1 mg/dl (1.7-2.5); POTASSIUM 5.5 mmol/L (3.5-5.1); SODIUM 135 mmol/L (135-144)
[2018-11-19] MEDS: INSULIN HUMAN REGULAR 100 UNIT in SOD CHLORIDE 0.9% 99 ML IV (06:03)
[2018-11-19] MEDS ORDERED: ACCU-CHEK XX (06:30)
[2018-11-19 06:56] LABS: HEMATOCRIT 24.5 % (37.0-47.0); HEMOGLOBIN 7.6 g/dl (12.0-16.0)
[2018-11-19] MEDS: ASPIRIN 325 MG TAB PO (08:31)
[2018-11-19] MEDS: FAMOTIDINE 20 MG TAB PO ×2 (08:31→21:28)
[2018-11-19] MEDS: FUROSEMIDE 20 MG INJ IV (08:40)
[2018-11-19] MEDS: ENOXAPARIN 40 MG/0.4 ML SYG SC (08:40)
[2018-11-19] MEDS: FUROSEMIDE 40 MG INJ IV ×3 (11:23→22:00)
[2018-11-19] MEDS: NA POLYST SULFON 15 GM/60 ML BTL PO (11:23)
[2018-11-19 20:08] LABS: ADD MAN DIFF? NO
[2018-11-19 20:14] LABS: BASOPHILS % 0.4 % (0.0-2.0); EOSINOPHILS # 0.1 10^3/ul (0.0-0.5); EOSINOPHILS % 0.7 % (0.0-7.0); HEMATOCRIT 22.4 % (37.0-47.0); LYMPHOCYTES # 1.5 10^3/ul (0.8-2.9); MEAN CORPUSCULAR HEMOGLOBIN 29.7 pg (29.0-33.0); MEAN CORPUSCULAR HGB CONC 31.3 g/dl (32.0-37.0); MEAN CORPUSCULAR VOLUME 94.9 fl (82.0-101.0); MONOCYTE # 0.9 10^3/ul (0.3-0.9); MONOCYTES % 10.3 % (0.0-11.0); NEUTROPHIL # 5.9 10^3/ul (1.6-7.5); NEUTROPHILS % 70.1 % (39.0-77.0); PLATELET COUNT 111 10^3/UL (140-415); RED BLOOD COUNT 2.36 10^6/ul (4.20-5.40); RED CELL DISTRIBUTION WIDTH 13.7 % (11.5-14.5)
[2018-11-19 20:14] LABS: WHITE BLOOD COUNT 8.5 10^3/ul (4.8-10.8)
[2018-11-19 20:18] LABS: ALANINE AMINOTRANSFERASE 32 IU/L (13-69); ALBUMIN 3.3 g/dl (3.3-4.9); ALBUMIN/GLOBULIN RATIO 1.32; ALKALINE PHOSPHATASE 90 IU/L (42-121); ANION GAP 11 (5-13); ASPARTATE AMINO TRANSFERASE 32 IU/L (15-46); BILIRUBIN,INDIRECT 0.4 mg/dl (0-1.1); BILIRUBIN,TOTAL 0.4 mg/dl (0.2-1.3); BLOOD UREA NITROGEN 23 mg/dl (7-20); CALCIUM 8.5 mg/dl (8.4-10.2); CARBON DIOXIDE 20 mmol/L (21-31); CHLORIDE 103 mmol/L (97-110); CREATININE 1.02 mg/dl (0.44-1.00); Estimated GFR 56 mL/min (>60); GLUCOSE 109 mg/dl (70-220); INR 1.04; PARTIAL THROMBOPLASTIN TIME 38.3 Sec (23.0-35.0); POTASSIUM 4.8 mmol/L (3.5-5.1); PROTIME 13.7 Sec (11.9-14.9); PT RATIO 1.1; SODIUM 134 mmol/L (135-144); TOTAL PROTEIN 5.8 g/dl (6.1-8.1)
[2018-11-19 20:22] LABS: PLATELET COUNT 107 10^3/UL (140-415)
[2018-11-19 20:28] LABS: THROMBIN TIME 14.5 SEC (13.8-19.1)
[2018-11-19] MEDS: SOD CHLORIDE 0.9% 250 ML IV* (21:11)
[2018-11-19] MEDS: ATORVASTATIN 40 MG TAB PO (21:28)
[2018-11-20 00:22] LABS: IMMEDIATE SPIN CROSSMATCH 1 1
[2018-11-20] MEDS: ACCU-CHEK XX ×9 (01:16→08:00)
[2018-11-20] MEDS: FUROSEMIDE 40 MG INJ IV ×4 (02:38→22:05)
[2018-11-20 05:28] LABS: ADD MAN DIFF? NO
[2018-11-20 05:35] LABS: BASOPHILS % 0.5 % (0.0-2.0); EOSINOPHILS # 0.1 10^3/ul (0.0-0.5); EOSINOPHILS % 1.7 % (0.0-7.0); HEMATOCRIT 26.3 % (37.0-47.0); HEMOGLOBIN 8.5 g/dl (12.0-16.0); LYMPHOCYTES # 1.5 10^3/ul (0.8-2.9); LYMPHOCYTES % 19.5 % (15.0-51.0); MEAN CORPUSCULAR HEMOGLOBIN 30.1 pg (29.0-33.0); MEAN CORPUSCULAR HGB CONC 32.3 g/dl (32.0-37.0); MEAN CORPUSCULAR VOLUME 93.3 fl (82.0-101.0); MEAN PLATELET VOLUME 12.9 fl (7.4-10.4); MONOCYTE # 0.8 10^3/ul (0.3-0.9); MONOCYTES % 11.1 % (0.0-11.0); NEUTROPHIL # 5.1 10^3/ul (1.6-7.5); NEUTROPHILS % 66.7 % (39.0-77.0); PLATELET COUNT 118 10^3/UL (140-415); RED BLOOD COUNT 2.82 10^6/ul (4.20-5.40); RED CELL DISTRIBUTION WIDTH 13.7 % (11.5-14.5)
[2018-11-20 05:35] LABS: WHITE BLOOD COUNT 7.6 10^3/ul (4.8-10.8)
[2018-11-20 05:54] LABS: PHOSPHORUS 5.7 mg/dl (2.5-4.9)
[2018-11-20 06:15] LABS: ANION GAP 9 (5-13); BLOOD UREA NITROGEN 23 mg/dl (7-20); CALCIUM 8.1 mg/dl (8.4-10.2); CARBON DIOXIDE 21 mmol/L (21-31); CHLORIDE 105 mmol/L (97-110); CREATININE 0.91 mg/dl (0.44-1.00); Estimated GFR > 60 mL/min (>60); GLUCOSE 89 mg/dl (70-220); MAGNESIUM 1.9 mg/dl (1.7-2.5); POTASSIUM 4.3 mmol/L (3.5-5.1); SODIUM 135 mmol/L (135-144)
[2018-11-20] MEDS: OXYCODONE/ACETAMINOPHEN (5/325) TAB PO (06:47)
[2018-11-20] MEDS ORDERED: GLUCOSE GEL 15 GRAM TUBE PO ×2 (10:00)
[2018-11-20] MEDS ORDERED: GLUCOSE GEL 15 GRAM TUBE BUCCAL (10:00)
[2018-11-20] MEDS ORDERED: GLUCAGON 1 MG INJ IM (10:00)
[2018-11-20] MEDS ORDERED: DEXTROSE 50% 50 ML SYRINGE IV ×2 (10:00)
[2018-11-20] MEDS: ASPIRIN 325 MG TAB PO (10:31)
[2018-11-20] MEDS: ENOXAPARIN 40 MG/0.4 ML SYG SC (10:31)
[2018-11-20] MEDS: FAMOTIDINE 20 MG TAB PO ×2 (10:31→20:10)
[2018-11-20] MEDS: INSULIN ASPART [NOVOLOG] 3 ML PEN SC ×2 (11:59→17:36)
[2018-11-20] MEDS: SOD FERRIC GLUC COMPLX 125 MG in SOD CHLORIDE 0.9% 100 ML IVPB (14:15)
[2018-11-20] MEDS: LISINOPRIL 5 MG TAB PO (16:24)
[2018-11-20] MEDS: INSULIN GLARGINE [LANTus] (100 UNITS/ML) SYG SC (20:09)
[2018-11-20] MEDS: ATORVASTATIN 40 MG TAB PO (20:10)
[2018-11-20] MEDS: IOHEXOL 100 ML (20:31)
[2018-11-20] MEDS: SOD CHLORIDE 0.9% 100 ML (20:31)
[2018-11-21] MEDS: ACCU-CHEK XX (02:00)
[2018-11-21] MEDS: FUROSEMIDE 40 MG INJ IV ×3 (06:12→23:01)
[2018-11-21 06:55] LABS: ADD MAN DIFF? NO
[2018-11-21 07:08] LABS: WHITE BLOOD COUNT 8.3 10^3/ul (4.8-10.8)
[2018-11-21 07:08] LABS: BASOPHILS % 0.4 % (0.0-2.0); EOSINOPHILS # 0.2 10^3/ul (0.0-0.5); EOSINOPHILS % 2.8 % (0.0-7.0); HEMOGLOBIN 8.9 g/dl (12.0-16.0); LYMPHOCYTES # 1.2 10^3/ul (0.8-2.9); LYMPHOCYTES % 14.5 % (15.0-51.0); MEAN CORPUSCULAR HEMOGLOBIN 29.9 pg (29.0-33.0); MEAN CORPUSCULAR VOLUME 90.6 fl (82.0-101.0); MEAN PLATELET VOLUME 12.3 fl (7.4-10.4); MONOCYTE # 0.8 10^3/ul (0.3-0.9); MONOCYTES % 10.1 % (0.0-11.0); NEUTROPHIL # 5.9 10^3/ul (1.6-7.5); NEUTROPHILS % 71.6 % (39.0-77.0); NUCLEATED RED BLOOD CELLS% 0.2 /100WBC (0.0-0.0); PLATELET COUNT 185 10^3/UL (140-415); RED BLOOD COUNT 2.98 10^6/ul (4.20-5.40); RED CELL DISTRIBUTION WIDTH 13.7 % (11.5-14.5)
[2018-11-21 07:18] LABS: PHOSPHORUS 3.8 mg/dl (2.5-4.9)
[2018-11-21 07:22] LABS: ANION GAP 8 (5-13); BLOOD UREA NITROGEN 22 mg/dl (7-20); CALCIUM 8.4 mg/dl (8.4-10.2); CARBON DIOXIDE 23 mmol/L (21-31); CHLORIDE 106 mmol/L (97-110); CREATININE 0.63 mg/dl (0.44-1.00); Estimated GFR > 60 mL/min (>60); GLUCOSE 194 mg/dl (70-220); SODIUM 137 mmol/L (135-144)
[2018-11-21] MEDS: ASPIRIN 325 MG TAB PO (08:23)
[2018-11-21] MEDS: LISINOPRIL 5 MG TAB PO (08:24)
[2018-11-21] MEDS: FAMOTIDINE 20 MG TAB PO ×2 (08:24→20:27)
[2018-11-21] MEDS: INSULIN ASPART [NOVOLOG] 3 ML PEN SC ×3 (08:29→18:17)
[2018-11-21] MEDS: ENOXAPARIN 40 MG/0.4 ML SYG SC (08:29)
[2018-11-21] MEDS: SOD FERRIC GLUC COMPLX 125 MG in SOD CHLORIDE 0.9% 100 ML IVPB (14:54)
[2018-11-21] MEDS: ATORVASTATIN 40 MG TAB PO (20:27)
[2018-11-21] MEDS: INSULIN GLARGINE [LANTus] (100 UNITS/ML) SYG SC (20:38)
[2018-11-22] MEDS: ACCU-CHEK XX (02:00)
[2018-11-22] MEDS: FUROSEMIDE 40 MG INJ IV ×3 (06:17→21:11)
[2018-11-22] MEDS: FAMOTIDINE 20 MG TAB PO ×2 (08:39→21:11)
[2018-11-22] MEDS: LISINOPRIL 5 MG TAB PO (08:39)
[2018-11-22] MEDS: ASPIRIN 325 MG TAB PO (08:39)
[2018-11-22] MEDS: ENOXAPARIN 40 MG/0.4 ML SYG SC ×2 (08:41→09:00)
[2018-11-22] MEDS: INSULIN ASPART [NOVOLOG] 3 ML PEN SC ×3 (08:50→17:51)
[2018-11-22 10:17] LABS: ADD MAN DIFF? NO
[2018-11-22 10:25] LABS: WHITE BLOOD COUNT 9.2 10^3/ul (4.8-10.8)
[2018-11-22 10:25] LABS: BASOPHILS % 0.3 % (0.0-2.0); EOSINOPHILS # 0.2 10^3/ul (0.0-0.5); EOSINOPHILS % 2.2 % (0.0-7.0); HEMATOCRIT 28.1 % (37.0-47.0); HEMOGLOBIN 9.1 g/dl (12.0-16.0); LYMPHOCYTES # 0.9 10^3/ul (0.8-2.9); LYMPHOCYTES % 9.9 % (15.0-51.0); MEAN CORPUSCULAR HEMOGLOBIN 29.7 pg (29.0-33.0); MEAN CORPUSCULAR HGB CONC 32.4 g/dl (32.0-37.0); MEAN CORPUSCULAR VOLUME 91.8 fl (82.0-101.0); MONOCYTE # 0.8 10^3/ul (0.3-0.9); MONOCYTES % 8.5 % (0.0-11.0); NEUTROPHIL # 7.3 10^3/ul (1.6-7.5); NEUTROPHILS % 78.8 % (39.0-77.0); PLATELET COUNT 272 10^3/UL (140-415); RED BLOOD COUNT 3.06 10^6/ul (4.20-5.40); RED CELL DISTRIBUTION WIDTH 13.8 % (11.5-14.5)
[2018-11-22 10:51] LABS: ANION GAP 8 (5-13); BLOOD UREA NITROGEN 18 mg/dl (7-20); CALCIUM 8.6 mg/dl (8.4-10.2); CARBON DIOXIDE 29 mmol/L (21-31); CHLORIDE 102 mmol/L (97-110); CREATININE 0.73 mg/dl (0.44-1.00); Estimated GFR > 60 mL/min (>60); GLUCOSE 139 mg/dl (70-220); POTASSIUM 3.5 mmol/L (3.5-5.1); SODIUM 139 mmol/L (135-144)
[2018-11-22] MEDS: SOD FERRIC GLUC COMPLX 125 MG in SOD CHLORIDE 0.9% 100 ML IVPB (13:38)
[2018-11-22] MEDS: INSULIN GLARGINE [LANTus] (100 UNITS/ML) SYG SC (20:00)
[2018-11-22] MEDS: ATORVASTATIN 40 MG TAB PO (21:18)
[2018-11-23] MEDS: ACCU-CHEK XX (02:00)
[2018-11-23] MEDS: FUROSEMIDE 40 MG INJ IV (05:51)
[2018-11-23 06:17] LABS: ADD MAN DIFF? NO
[2018-11-23 06:27] LABS: WHITE BLOOD COUNT 8.6 10^3/ul (4.8-10.8)
[2018-11-23 06:27] LABS: BASOPHILS % 0.5 % (0.0-2.0); EOSINOPHILS # 0.2 10^3/ul (0.0-0.5); EOSINOPHILS % 2.7 % (0.0-7.0); HEMATOCRIT 26.8 % (37.0-47.0); HEMOGLOBIN 8.6 g/dl (12.0-16.0); LYMPHOCYTES # 1.2 10^3/ul (0.8-2.9); LYMPHOCYTES % 13.4 % (15.0-51.0); MEAN CORPUSCULAR HEMOGLOBIN 29.5 pg (29.0-33.0); MEAN CORPUSCULAR HGB CONC 32.1 g/dl (32.0-37.0); MEAN CORPUSCULAR VOLUME 91.8 fl (82.0-101.0); MEAN PLATELET VOLUME 10.8 fl (7.4-10.4); MONOCYTES % 11.4 % (0.0-11.0); NEUTROPHIL # 6.1 10^3/ul (1.6-7.5); NEUTROPHILS % 71.3 % (39.0-77.0); PLATELET COUNT 262 10^3/UL (140-415); RED BLOOD COUNT 2.92 10^6/ul (4.20-5.40); RED CELL DISTRIBUTION WIDTH 13.9 % (11.5-14.5)
[2018-11-23 06:50] LABS: ANION GAP 6 (5-13); BLOOD UREA NITROGEN 19 mg/dl (7-20); CALCIUM 7.8 mg/dl (8.4-10.2); CARBON DIOXIDE 29 mmol/L (21-31); CHLORIDE 102 mmol/L (97-110); CREATININE 0.68 mg/dl (0.44-1.00); Estimated GFR > 60 mL/min (>60); GLUCOSE 109 mg/dl (70-220); POTASSIUM 3.8 mmol/L (3.5-5.1); SODIUM 137 mmol/L (135-144)
[2018-11-23 07:09] LABS: PHOSPHORUS 4.2 mg/dl (2.5-4.9)
[2018-11-23 07:09] LABS: MAGNESIUM 1.8 mg/dl (1.7-2.5)
[2018-11-23] MEDS: LISINOPRIL 5 MG TAB PO (08:31)
[2018-11-23] MEDS: FAMOTIDINE 20 MG TAB PO ×2 (08:31→20:23)
[2018-11-23] MEDS: ASPIRIN 325 MG TAB PO (08:32)
[2018-11-23] MEDS: ENOXAPARIN 40 MG/0.4 ML SYG SC (08:40)
[2018-11-23] MEDS: INSULIN ASPART [NOVOLOG] 3 ML PEN SC ×3 (08:41→17:53)
[2018-11-23] MEDS: FUROSEMIDE 40 MG TAB PO (18:15)
[2018-11-23] MEDS: ATORVASTATIN 40 MG TAB PO (20:23)
[2018-11-23] MEDS: INSULIN GLARGINE [LANTus] (100 UNITS/ML) SYG SC (20:34)
[2018-11-24] MEDS: ACCU-CHEK XX (02:00)
[2018-11-24] MEDS: FUROSEMIDE 40 MG TAB PO (05:42)
[2018-11-24] MEDS: INSULIN ASPART [NOVOLOG] 3 ML PEN SC ×2 (07:58→11:10)
[2018-11-24] MEDS: ASPIRIN 325 MG TAB PO (08:30)
[2018-11-24] MEDS: LISINOPRIL 5 MG TAB PO (08:31)
[2018-11-24] MEDS: FAMOTIDINE 20 MG TAB PO (08:31)
[2018-11-24] MEDS: ENOXAPARIN 40 MG/0.4 ML SYG SC (08:44)
== END 2018-11-24 16:35 | disposition home or self-care (01) | DRG 233 ==
LOC: 6WM 21:21 → ICU 11-17 12:58 → 6WM 11-21 18:34 → E/R 14:56 → 6WM 11-20 22:33
PROC: 4A023N7 Measurement of Cardiac Sampling and Pressure, Left Heart, Percutaneous Approach (ICD-10-PCS; 2018-11-13 13:30)
PROC: B211YZZ Fluoroscopy of Multiple Coronary Arteries using Other Contrast (ICD-10-PCS; 2018-11-13 13:30)
PROC: 02100Z9 Bypass Coronary Artery, One Artery from Left Internal Mammary, Open Approach (ICD-10-PCS; principal; 2018-11-13 13:37)
PROC: 021109W Bypass Coronary Artery, Two Arteries from Aorta with Autologous Venous Tissue, Open Approach (ICD-10-PCS; 2018-11-13 13:37)
PROC: 06BP4ZZ Excision of Right Saphenous Vein, Percutaneous Endoscopic Approach (ICD-10-PCS; 2018-11-13 13:37)
PROC: 5A1221Z Performance of Cardiac Output, Continuous (ICD-10-PCS; 2018-11-13 13:37)
PROC: 5A1223Z Performance of Cardiac Pacing, Continuous (ICD-10-PCS; 2018-11-13 13:37)
PROC: 0W993ZZ Drainage of Right Pleural Cavity, Percutaneous Approach (ICD-10-PCS; 2018-11-13 13:37)
PROC: 30233N1 Transfusion of Nonautologous Red Blood Cells into Peripheral Vein, Percutaneous Approach (ICD-10-PCS; 2018-11-13 13:37)
DX: I25.10 Atherosclerotic heart disease of native coronary artery without angina pectoris (principal); I50.23 Acute on chronic systolic (congestive) heart failure; D62 Acute posthemorrhagic anemia; J90 Pleural effusion, not elsewhere classified; I11.0 Hypertensive heart disease with heart failure; I25.82 Chronic total occlusion of coronary artery; E11.65 Type 2 diabetes mellitus with hyperglycemia; E66.9 Obesity, unspecified; I25.5 Ischemic cardiomyopathy; R42 Dizziness and giddiness; H53.8 Other visual disturbances; Z68.33 Body mass index [BMI] 33.0-33.9, adult; Z79.82 Long term (current) use of aspirin; Z79.4 Long term (current) use of insulin; E78.5 Hyperlipidemia, unspecified
CPT/HCPCS: 32555; 36415; 36430; 36592; 36600; 70450; 70496; 70498; 71045; 71250; 75574; 80048; 80053; 80061; 82803; 82962; 83036; 83615; 83735; 83880; 84100; 84157; 84443; 84484; 85014; 85018; 85025; 85049; 85610; 85670; 85730; 86850; 86900; 86901; 86920; 87070; 87081; 87102; 87116; 93005; 93306; 93312; 93325; 93458; 93880; 94002; 97116; 97163; 97165; 97530; 97535; 99285-25